=== PATIENT | female | born 1985 | race Caucasian/White ===

== ENCOUNTER 2016-12-19 10:20 | Emergency (ER) | payer MEDICAID ==
--- NOTE | 2016-12-19 10:33 | ER Document Report ---
ED Medical Screen (RME) - General Stated Complaint: EYE PAIN Notes: 31 yo female c/o pressure behind both eyes but worse behind left eye , blurred vision, loss of balance x 1 week. pt recently started OCP, and is concerned symptoms may be from control pills. no hx/o frequent headaches. no n/v, no fever, no neck pain. no chest pain or shortness of breath. pt is neurologically intact. NAD. VSS pt is 4 mos TRAVEL OUTSIDE OF THE [place] IN LAST 30 DAYS: No - Related Data Allergies/Adverse Reactions: No Known Allergies Allergy (Unverified 08/09/16 14:57) Past Medical History - Past Medical History Cardiac Medical History: Denies: Hx Hypertension, Hx Pulmonary Embolism, Hx Heart Murmur Pulmonary Medical History: Denies: Hx Asthma, Hx Sleep Apnea, Hx Tuberculosis Neurological Medical History: Denies: Hx Cerebrovascular Accident, Hx Seizures Endocrine Medical History: Denies: Hx Hyperthyroidism, Hx Hypothyroidism Renal/ Medical History: Denies: Hx Kidney Stones, Hx Ovarian Cysts, Hx Pelvic Inflammatory Disease Malignancy Medical History: Denies: Hx Breast Cancer, Hx Cervical Cancer, Hx Ovarian Cancer GI Medical History: Reports: Hx Gastroesophageal Reflux Disease - with . Denies: Hx Hiatal Hernia, Hx Ulcer Musculoskeltal Medical History: Denies Hx Fibromyalgia Psychiatric Medical History: Denies: Hx Bipolar Disorder, Hx Depression, Hx Post Traumatic Stress Disorder , Hx Schizophrenia Traumatic Medical History: Denies: Hx Fractures Infectious Medical History: Denies: Hx HIV Physical Exam - Vital signs Vitals: Temp Pulse Resp BP Pulse Ox 97.9 F 75 16 115/72 100 12/19/16 10:12/19/16 10:12/19/16 10:12/19/16 10:12/19/16 10:28 Course - Vital Signs Vital signs: Temp Pulse Resp BP Pulse Ox 97.9 F 75 16 115/72 100 12/19/16 10:28 12/19/16 10:28 12/19/16 10:28 12/19/16 10:28 12/19/16 10:28
[2016-12-19 10:53] LABS: ABSOLUTE EOSINOPHILS # (AUTO) 0.3 10^3/uL (0.0-0.6); ABSOLUTE LYMPHOCYTES (AUTO) 1.9 10^3/uL (0.5-4.7); ABSOLUTE MONOCYTES (AUTO) 0.5 10^3/uL (0.1-1.4); ABSOLUTE NEUT (AUTO) 4.6 10^3/uL (1.7-8.2); BASOPHILS % (AUTO) 0.5 % (0-2); EOSINOPHILS % (AUTO) 3.8 % (0-6); HEMATOCRIT 39.3 % (36.0-47.0); HEMOGLOBIN 13.2 g/dL (12.0-15.5); HGB HCT DIFFERENCE 0.3; LYMPHOCYTES % (AUTO) 25.6 % (13-45); MEAN CORPUSCULAR HEMOGLOBIN 29.4 pg (27.0-33.4); MEAN CORPUSCULAR HGB CONC 33.7 g/dL (32.0-36.0); MEAN CORPUSCULAR VOLUME 87 fl (80-97); MONOCYTES % (AUTO) 6.3 % (3-13); RED BLOOD COUNT 4.51 10^6/uL (3.72-5.28); RED CELL DISTRIBUTION WIDTH 14.2 % (11.5-14.0); SEGMENTED NEUTROPHILS % (AUTO) 63.8 % (42-78); WHITE BLOOD COUNT 7.3 10^3/uL (4.0-10.5)
[2016-12-19 11:01] LABS: APPEARANCE,URINE SLIGHTLY-CLOUDY; BILIRUBIN,URINE NEGATIVE (NEGATIVE); GLUCOSE, URINE NEGATIVE (NEGATIVE); KETONES,URINE NEGATIVE (NEGATIVE); LEUKOCYTE ESTERASE,URINE SMALL (NEGATIVE); NITRITE,URINE NEGATIVE (NEGATIVE); PROTEIN,URINE NEGATIVE (NEGATIVE); URINE SPECIFIC GRAVITY 1.025; UROBILINOGEN,URINE NEGATIVE mg/dL (<2.0)
[2016-12-19 11:15] LABS: ALANINE AMINOTRANSFERASE 34 U/L (9-52); ALBUMIN 4.1 g/dL (3.5-5.0); ALKALINE PHOSPHATASE 67 U/L (38-126); ANION GAP 7 (5-19); ASPARTATE AMINO TRANSFERASE 20 U/L (14-36); BILIRUBIN,TOTAL 0.5 mg/dL (0.2-1.3); BLOOD UREA NITROGEN 12 mg/dL (7-20); CALCIUM 9.3 mg/dL (8.4-10.2); CARBON DIOXIDE 28 mmol/L (22-30); CHLORIDE 105 mmol/L (98-107); CREATININE RESULT 0.75 mg/dL (0.52-1.25); GLUCOSE 87 mg/dL (75-110); POTASSIUM 4.5 mmol/L (3.6-5.0); SODIUM 140.3 mmol/L (137-145); TOTAL PROTEIN 6.5 g/dL (6.3-8.2)
--- NOTE | 2016-12-19 12:49 | ER Document Report ---
ED Headache - General Chief Complaint: Headache Stated Complaint: EYE PAIN Notes: Patient is experiencing a "dull pressure" behind both of her eyes, the left is worse than the right that began this morning as she awakened. She also noted blurry white vision bilaterally this morning that lasted for about 10 minutes but as resolved. Patient has not had symptoms like this before. She does recall that she had 2 episodes in the past week in which she seemingly lost her balance and had to hold onto adjacent structures to keep from falling. Both of these episodes lasted about 1 minute and one occurred a week ago and the other one occurred a couple of days ago. She did not experience dizziness or lightheadedness. The patient says she also experienced some ringing in her right ear this morning. Denies any nausea or vomiting. Denies any fever. Has had a slight cough with congestion. Did not pass out or lose consciousness. Patient has an IUD for control and has had it for 2 months. She is approximately 4 months , August 13. Has had 3 C-sections. Has 3 very young children at home. Patient says that she has not been able to sleep well at all for a couple of months. She sometimes goes a couple of days with inability to sleep at all. Patient is concerned that the control IUD may be causing her current symptoms. TRAVEL OUTSIDE OF THE [place] IN LAST 30 DAYS: No - Related Data Allergies/Adverse Reactions: No Known Allergies Allergy (Unverified 08/09/16 14:57) Past Medical History - Social History Smoking Status: Current Every Day Smoker Cigarette use (# per day): Yes Chew tobacco use (# tins/day): No Frequency of alcohol use: Rare Family History: Reviewed & Not Pertinent Patient has suicidal ideation: No Patient has homicidal ideation: No - Past Medical History Cardiac Medical History: Denies: Hx Hypertension, Hx Pulmonary Embolism, Hx Heart Murmur Neurological Medical History: Denies: Hx Cerebrovascular Accident, Hx Migraine, Hx Seizures GI Medical History: Reports: Hx Gastroesophageal Reflux Disease - with Past Surgical History: Reports: Hx Section - 3, Hx Cholecystectomy Review of Systems - Review of Systems Notes: REVIEW OF SYSTEMS: CONSTITUTIONAL : Denies fever. EENT: Denies nose or mouth or throat pain or other symptoms. See history of present illness regarding ringing in the ear, problems with vision. CARDIOVASCULAR: Denies chest pain. RESPIRATORY: Has had some cough and chest congestion, but not shortness of breath. GASTROINTESTINAL: Denies abdominal pain or nausea, vomiting, or diarrhea. GENITOURINARY: Denies difficulty or painful urinating, urinary frequency, blood in urine. MUSCULOSKELETAL: Denies back or neck pain. Denies joint pain or swelling. SKIN: Denies rash or skin lesions. NEUROLOGICAL: Denies LOC or altered mental status. Denies headache, but describes "dull pressure"--see history of present illness. Denies sensory loss or motor deficits. PSYCHIATRIC: Denies anxiety or stress. Denies depression. ALL OTHER SYSTEMS REVIEWED AND NEGATIVE. Physical Exam - Vital signs Vitals: Temp Pulse Resp BP Pulse Ox 97.9 F 75 16 115/72 100 12/19/16 10:28 12/19/16 10:28 12/19/16 10:12/19/16 10:12/19/16 10:28 Interpretation: Normal - Notes Notes: PHYSICAL EXAMINATION: GENERAL: Well-appearing, in no acute distress. Weighs 114 kg. HEAD: Atraumatic, normocephalic. EYES: Pupils equal round and reactive to light, extraocular movements intact. ENT: oropharynx clear without exudates. Moist mucous membranes. NECK: Normal range of motion, supple. LUNGS: Breath sounds clear and equal bilaterally. HEART: Regular rate and rhythm without murmurs. ABDOMEN: Soft, nontender. No guarding or rebound. BACK: No tenderness throughout entire back. EXTREMITIES: Normal range of motion without pain. NEUROLOGICAL: Normal speech, normal gait. Normal sensory, motor, and reflex exams. Awake, alert, and oriented x3. Cranial nerves normal. PSYCH: Normal mood, normal affect. SKIN: Warm, dry, no rashes. Course - Vital Signs Vital signs: Temp Pulse Resp BP Pulse Ox 97.9 F 75 16 115/72 100 12/19/16 10:28 12/19/16 10:28 12/19/16 10:28 12/19/16 10:28 12/19/16 10:28 - Laboratory Result Diagrams: 12/19/16 10:38 12/19/16 10:38 Laboratory results interpreted by me: 12/19/16 12/19/16 10:38 10:38 RDW 14.2 H Urine Blood MODERATE H Ur Leukocyte Esterase SMALL H Discharge - Discharge Clinical Impression: Eye pressure Headache Qualifiers: Headache type: unspecified Headache chronicity pattern: chronic headache Intractability: not intractable Qualified Code(s): R51 - Headache Condition: Stable Disposition: HOME, SELF-CARE Additional Instructions: HEADACHE and EYE PRESSURE: The physician does not feel that the headache you are experiencing has a serious underlying cause. Most headaches are due to emotional stress, with resultant muscle tension (tension headache). Occasionally, headaches are secondary to changes in the blood vessels of the scalp (vascular headache and migraine headache). Sometimes, a headache is the first symptom of another developing illness, such as a viral infection. You have no evidence of stroke, bleeding, meningitis, or other serious cause of your headache. The treatment of headaches varies with the severity and cause of the pain. Not all headaches need pain shots. In fact, there is evidence that using narcotics for headaches may make them worse in the long run. The physician will determine the therapy that's in your best interest. If you develop a fever, if the headache is different from any you've previously experienced, or if the headache progressively worsens, then call your physician at once or go to the emergency room. NORMAL EXAM AND WORKUP: At this time, your examination and workup show no significant abnormality. No significant abnormal physical findings were noted. All laboratory, EKG, and imaging (x-ray, CT scans, ultrasound) studies that were ordered show no significant abnormality. Although your examination and all studies that were ordered showed no significant abnormal finding, there are no examinations and no studies that are 100% accurate. There is always the possibility that some abnormality could exist and not be detected with physical examination or within the limits and capabilities of laboratory and other studies. You should return or follow up as you were instructed on your visit today for further evaluation if your symptoms do not resolve. Anxiety The physician feels that some of your health problems are being caused by anxiety. Anxiety affects your health in many ways. Anxiety alone can cause palpitations, sweats, chest pains, abdominal pains, shortness of breath, and headaches. It contributes to ulcer disease, high blood pressure, irritable bowel syndrome, and has been shown to cause flare-ups of many other diseases. Anxiety is not a simple disorder to treat. If the anxiety is due to recent life stresses, you may simply need time to "work through" the changes. If the anxiety is due to an underlying unhappiness with yourself or due to psychiatric disturbance, professional help will be needed. Your physician can refer you for further help if needed. Anti-anxiety medication is occasionally given if the stress is acute or if you are having trouble sleeping. Chronic or frequent use of these medications is not a good idea because the body becomes reliant on it, preventing you from dealing with life's normal stresses. Benzodiazepines You have been given a benzodiazepine medication. Examples of this type of medicine include Valium, Xanax, Librium, Ativan, and Halcion. Benzodiazepines have many uses. Medications of this type are used for insomnia, anxiety, muscle spasms, seizures, and drug and alcohol withdrawal. You may become very drowsy when you first take the medication. You should not drive or operate machinery while under its effects. Do not combine the medication with alcohol, or with any other medication without talking to your doctor. Do not take if without specific instruction from your welding machine operator/tender. Some benzodiazepines may have harmful interactions with oral antifungal medicines such as ketoconazole, itraconazole, and nefazodone. If you are taking an antifungal medicine, discuss this with your doctor before taking benzodiazepines. If you run out of the prescribed Ativan medication sometimes diphenhydramine ( Benadryl) can be helpful for your symptoms. USE OF DIPHENHYDRAMINE: Diphenhydramine (Benadryl) is an antihistamine and has been recommended to help treat your headache and to prevent side effects of other medications used to treat headaches. The medication can be repeated four times daily. Age Elixir (12.5 mg/tsp) 25 mg pill adult 1-2 tabs Antihistamines may cause drowsiness, especially with the first dose. Do not operate machinery or drive while under the effects of the medication. Do not combine the medication with alcohol, or with any other medication without talking to your doctor. FOLLOW-UP CARE: If you have been referred to a physician for follow-up care, call the physician s office for an appointment as you were instructed or within the next two days. If you experience worsening or a significant change in your symptoms, notify the physician immediately or return to the Emergency Department at any time for re-evaluation. I am providing you with contact information for a local mental health facility that you could try to schedule an appointment for evaluation if your symptoms do not improve. Prescriptions: Lorazepam [Ativan 1 mg Tablet] 1 - 2 mg PO Q4HP PRN #12 tab PRN Reason: Referrals: [facility] [Provider Group] - Follow up as needed
[2016-12-19 14:34] VITALS: BP 103/50
== END 2016-12-19 14:34 | disposition home or self-care (01) ==
LOC: ER 10:20
DX: R51 Headache (principal); H57.8 Other specified disorders of eye and adnexa; H53.8 Other visual disturbances; H93.11 Tinnitus, right ear; R05 Cough; R09.89 Other specified symptoms and signs involving the circulatory and respiratory systems; F17.210 Nicotine dependence, cigarettes, uncomplicated; Z97.5 Presence of (intrauterine) contraceptive device
CPT/HCPCS: 36415; 70450; 80053; 81001; 85025; 99284

== ENCOUNTER 2017-04-13 13:52 | Emergency (ER) | payer MEDICAID ==
--- NOTE | 2017-04-13 15:35 | ER Document Report ---
HPI - HPI Pain Level: 2 Context: Patient is a 31-year-old female who presents the office complaining of an infection, possible abscess, to her tailbone 1 week. Pt denies any discharge or red streaks to the area. Patient states that about 8 years ago she had a similar incident where she needed medication and was able to express purulent discharge. Patient has been having trouble applying pressure to that area. She has not had any other [id number] medications for her symptoms. The pain does not radiate. Denies any fever, URI symptoms, sore throat, chest pain , palpitations, shortness of breath, cough, wheeze, abdominal pain, nausea, vomiting, dysuria, or other rash. - ROS Notes: REVIEW OF SYSTEMS: CONSTITUTIONAL : Denies fever, chills, or sweats. Denies recent illness. CARDIOVASCULAR: Denies chest pain. Denies palpitations or racing or irregular heart beat. Denies ankle edema. RESPIRATORY: Denies cough, cold, or chest congestion. Denies shortness of breath, difficulty breathing, or wheezing. GASTROINTESTINAL: Denies abdominal pain or distention. Denies nausea, vomiting , or diarrhea. Denies blood in vomitus, stools, or per rectum. Denies black, tarry stools. Denies constipation. GENITOURINARY: Denies difficulty urinating, painful urination, burning, frequency, blood in urine, or discharge. FEMALE GENITOURINARY: Denies vaginal bleeding, heavy or abnormal periods, irregular periods. Denies vaginal discharge or odor. MUSCULOSKELETAL: Denies back or neck pain or stiffness. Denies joint pain or swelling. SKIN: see hpi. ALL OTHER SYSTEMS REVIEWED AND NEGATIVE. Dictation was performed using [employer] voice recognition software - DERM Skin Color: Normal Past Medical History - Social History Smoking Status: Current Every Day Smoker Family History: Reviewed & Not Pertinent Patient has suicidal ideation: No Patient has homicidal ideation: No - Past Medical History Cardiac Medical History: Denies: Hx Hypertension, Hx Pulmonary Embolism, Hx Heart Murmur Pulmonary Medical History: Denies: Hx Asthma, Hx Sleep Apnea, Hx Tuberculosis Neurological Medical History: Denies: Hx Cerebrovascular Accident, Hx Migraine, Hx Seizures Endocrine Medical History: Denies: Hx Hyperthyroidism, Hx Hypothyroidism Renal/ Medical History: Denies: Hx Kidney Stones, Hx Ovarian Cysts, Hx Peritoneal Dialysis, Hx Pelvic Inflammatory Disease Malignancy Medical History: Denies: Hx Breast Cancer, Hx Cervical Cancer, Hx Ovarian Cancer GI Medical History: Reports: Hx Gastroesophageal Reflux Disease - with . Denies: Hx Hiatal Hernia, Hx Ulcer Musculoskeltal Medical History: Denies Hx Fibromyalgia Psychiatric Medical History: Denies: Hx Bipolar Disorder, Hx Depression, Hx Post Traumatic Stress Disorder , Hx Schizophrenia Traumatic Medical History: Denies: Hx Fractures Infectious Medical History: Denies: Hx HIV Past Surgical History: Reports: Hx Section - 3, Hx Cholecystectomy Vertical Provider Document - CONSTITUTIONAL Notes: PHYSICAL EXAMINATION: GENERAL: Well-appearing, well-nourished and in no acute distress. HEAD: Atraumatic, normocephalic. NECK: Normal range of motion, supple without lymphadenopathy LUNGS: Breath sounds clear to auscultation bilaterally and equal. No wheezes rales or rhonchi. HEART: Regular rate and rhythm without murmurs, rubs, gallops. Extremities: No cyanosis, clubbing, or edema b/l. NEUROLOGICAL: Cranial nerves grossly intact. Normal speech, normal gait. Normal sensory, motor exams PSYCH: Normal mood, normal affect. SKIN: + erythema (0.25cm) area to the superficial coccyx with possible 2 small sinus tracts. Probable pilonidal cyst palpated to the coccyx. + tenderness. No streaks, discharge, or abscess appreciated. - INFECTION CONTROL TRAVEL OUTSIDE OF THE [place] IN LAST 30 DAYS: No - RESPIRATORY O2 Sat by Pulse Oximetry: 99 Course - Re-evaluation Re-evalutation: Patient is a 31yo female who presents with mild cellulitis w/o abscess to her suspected pilonidal cyst. I will cover her with bactrim DS BID x10 days. Vitals stable. PE otherwise unremarkable. No I&D warranted at this time. Recommend she f/u with a general surgeon for elective excision once infection resolves. Consult with PCM in 2-3 days for recheck. If any worsening sx's or development of fever to return to the ED. Pt in agreement. Instructions as otherwise reviewed in d/c. 04/13/17 18:13 - Vital Signs Vital signs: Temp Pulse Resp BP Pulse Ox 98.2 F 87 16 133/82 H 99 04/13/17 14:01 04/13/17 14:01 04/13/17 14:01 04/13/17 14:01 04/13/17 14:01 Discharge - Discharge Clinical Impression: Pilonidal cyst without abscess Cellulitis Qualifiers: Site of cellulitis: other site Qualified Code(s): L03.818 - Cellulitis of other sites Condition: Stable Disposition: HOME, SELF-CARE Instructions: Trimethoprim-Sulfa ([facility]) Additional Instructions: Keep the area clean and dry May apply triple antibiotic ointment Tylenol ibuprofen as needed for discomfort Take medication as directed Follow-up with your primary care doctor in 2-3 days for recheck Consider consult with a general surgeon to further evaluate for possible pilonidal cyst and elective excision. Return to the ED with any development of fever worsening pain purulent discharge or red streaks. Prescriptions: Sulfamethoxazole/Trimethoprim [Bactrim Ds Tablet] 1 each PO BID #20 tablet Referrals: [facility] [Provider Group] - Follow up as needed
[2017-04-13 16:07] VITALS: BP 118/63
== END 2017-04-13 16:05 | disposition home or self-care (01) ==
LOC: ER 13:52
DX: L05.91 Pilonidal cyst without abscess (principal); L03.818 Cellulitis of other sites; F17.200 Nicotine dependence, unspecified, uncomplicated
CPT/HCPCS: 99282

== ENCOUNTER 2017-08-09 09:09 | Emergency (ER) | payer MEDICAID ==
[2017-08-09] MEDS ORDERED: CEFTRIAXONE INJ 1000 MG VIAL IM ONE (09:53)
[2017-08-09] MEDS ORDERED: LIDOCAINE 1% INJ-PF (10 MG/ML) 30 ML SDV INJ ONE (09:53)
[2017-08-09] MEDS ORDERED: DEXAMETHASONE SOD PHOS INJ 10 MG/1 ML VIAL IM ONE (09:53)
--- NOTE | 2017-08-09 10:31 | ER Document Report ---
ED Head/Face/Scalp Injury - General Chief Complaint: Facial Swelling Stated Complaint: RT FACE SWELLING Time Seen by Provider: 08/09/17 09:36 Mode of Arrival: Ambulatory Information source: Patient Notes: Patient is a 32-year-old who presents to the ER today for swelling and pain to the right side of her mouth. Patient states that she cracked a tooth recently and was in pain, but was taking ibuprofen 800 that was handling it and over the past 3 days has gotten swelling to the right side of that area. She denies any drainage, fever, chills, history of abscesses or MRSA. TRAVEL OUTSIDE OF THE [place] IN LAST 30 DAYS: No - Related Data Allergies/Adverse Reactions: No Known Allergies Allergy (Verified 08/09/17 09:29) Past Medical History - General Information source: Patient - Social History Smoking Status: Unknown if Ever Smoked Chew tobacco use (# tins/day): No Frequency of alcohol use: None Drug Abuse: None Family History: Reviewed & Not Pertinent Patient has suicidal ideation: No Patient has homicidal ideation: No - Past Medical History Cardiac Medical History: Denies: Hx Hypertension, Hx Pulmonary Embolism, Hx Heart Murmur Pulmonary Medical History: Denies: Hx Asthma, Hx Sleep Apnea, Hx Tuberculosis Neurological Medical History: Denies: Hx Cerebrovascular Accident, Hx Migraine, Hx Seizures Endocrine Medical History: Denies: Hx Hyperthyroidism, Hx Hypothyroidism Renal/ Medical History: Denies: Hx Kidney Stones, Hx Ovarian Cysts, Hx Peritoneal Dialysis, Hx Pelvic Inflammatory Disease Malignancy Medical History: Denies: Hx Breast Cancer, Hx Cervical Cancer, Hx Ovarian Cancer GI Medical History: Reports: Hx Gastroesophageal Reflux Disease - with . Denies: Hx Hiatal Hernia, Hx Ulcer Musculoskeltal Medical History: Denies Hx Fibromyalgia Psychiatric Medical History: Denies: Hx Bipolar Disorder, Hx Depression, Hx Post Traumatic Stress Disorder , Hx Schizophrenia Traumatic Medical History: Denies: Hx Fractures Infectious Medical History: Denies: Hx HIV Past Surgical History: Reports: Hx Section - 3, Hx Cholecystectomy Review of Systems - Review of Systems Constitutional: No symptoms reported EENT: See HPI Cardiovascular: No symptoms reported Respiratory: No symptoms reported Gastrointestinal: No symptoms reported Genitourinary: No symptoms reported Female Genitourinary: No symptoms reported Musculoskeletal: No symptoms reported Skin: No symptoms reported Hematologic/Lymphatic: No symptoms reported Neurological/Psychological: No symptoms reported Physical Exam - Vital signs Vitals: Temp Pulse Resp BP Pulse Ox 98.8 F 74 18 113/74 100 08/09/17 09:27 08/09/17 09:27 08/09/17 09:08/09/17 09:08/09/17 09:27 - Notes Notes: PHYSICAL EXAMINATION: GENERAL: mildly ill appearing, but in no acute distress. HEAD: Atraumatic, normocephalic. EYES: Pupils equal round and reactive to light, extraocular movements intact, sclera anicteric, conjunctiva are normal. ENT: ear canals without erythema or foreign body, TMs pearly christopher with good bony landmarks, nares patent, oropharynx clear without exudates. Moist mucous membranes. edema noted to right lower buccal space, no fluctuance or induration noted, no drainage NECK: Normal range of motion, supple without lymphadenopathy LUNGS: CTAB and equal. No wheezes rales or rhonchi. HEART: Regular rate and rhythm without murmurs EXTREMITIES: Normal range of motion, no pitting edema. No cyanosis. NEUROLOGICAL: Cranial nerves grossly intact. Normal sensory/motor exams. PSYCH: Normal mood, normal affect. SKIN: Warm, Dry, normal turgor, no rashes or lesions noted Course - Re-evaluation Re-evalutation: 08/09/17 10:36 Patient was given Rocephin and Decadron injections here. I will refer her to ear nose and throat as I see nothing to drain here today. - Vital Signs Vital signs: Temp Pulse Resp BP Pulse Ox 98.8 F 74 18 113/74 100 08/09/17 09:27 08/09/17 09:08/09/17 09:08/09/17 09:08/09/17 09:27 Discharge - Discharge Clinical Impression: Dental infection Condition: Stable Disposition: HOME, SELF-CARE Additional Instructions: Return immediately for any new or worsening symptoms. Follow up with ear nose and throat, call tomorrow to make followup appointment. Prescriptions: Clindamycin HCl 300 mg PO TID #30 capsule Methylprednisolone [Medrol Dosepack (4 mg/Tab) 21 Tab/Dosepak] 4 mg PO ASDIR PRN #21 tab.ds.[id number] PRN Reason: Referrals: [facility] [Primary Care Provider] - Follow up as needed [facility] [Provider Group] - Follow up as needed
[2017-08-09 10:46] VITALS: BP 116/61
== END 2017-08-09 10:46 | disposition home or self-care (01) ==
LOC: ER 09:09
DX: K04.7 Periapical abscess without sinus (principal)
CPT/HCPCS: 99283; 96372; J3490; J0696; J1100

== ENCOUNTER 2017-09-10 08:27 | Emergency (ER) | payer MEDICAID ==
[2017-09-10 08:34] VITALS: BP 112/58
--- NOTE | 2017-09-10 09:38 | ER Document Report ---
HPI - HPI Patient complains to provider of: Dental pain with swelling to right lower jaw Onset: Yesterday - Couple days Quality of pain: No pain Severity: None Pain Level: Denies Associated Symptoms: Other - Minimal dental pain with swelling to the right lower jaw Exacerbated by: Denies Relieved by: Denies Similar symptoms previously: Yes Recently seen / treated by doctor: No - ROS ROS below otherwise negative: Yes - CONSTITUTIONAL Constitutional: DENIES: Fever, Chills - EENT EENT: DENIES: Sore Throat, Ear Pain, Nasal Drainage-Clear, Nasal Drainage- Purulent, Congestion, Eye problems - NEURO Notes: Dental pain tooth #30 with minimal swelling to the right lower jaw - CARDIOVASCULAR Cardiovascular: DENIES: Chest pain - RESPIRATORY Respiratory: DENIES: Trouble Breathing, Coughing - GASTROINTESTINAL Gastrointestinal: DENIES: Abdominal Pain, Nausea, Patient vomiting, Diarrhea, Constipation, Black / Bloody Stools - URINARY Urinary: DENIES: Dysuria, Urgency, Frequency - REPRODUCTIVE Reproductive: DENIES: :, Postmenopausal, Abnormal bleeding / discharge - MUSCULOSKELETAL Musculoskeletal: DENIES: Extremity pain, Back Pain, Neck Pain, Swelling - DERM Skin Color: Normal Skin Problems: None Past Medical History - General Information source: Patient - Social History Smoking Status: Former Smoker Cigarette use (# per day): No Chew tobacco use (# tins/day): No Smoking Education Provided: No Frequency of alcohol use: Rare Drug Abuse: None Lives with: Family Family History: Reviewed & Not Pertinent Patient has suicidal ideation: No Patient has homicidal ideation: No - Past Medical History Cardiac Medical History: Reports: None Pulmonary Medical History: Reports: None EENT Medical History: Reports: Other Neurological Medical History: Reports: None - [facility] Endocrine Medical History: Reports: None Renal/ Medical History: Reports: None Malignancy Medical History: Reports: None GI Medical History: Reports: Hx Gastroesophageal Reflux Disease - with Musculoskeltal Medical History: Reports None Skin Medical History: Reports None Psychiatric Medical History: Reports: None Traumatic Medical History: Reports: None Infectious Medical History: Reports: None Past Surgical History: Reports: Hx Section - 3, Hx Cholecystectomy Vertical Provider Document - CONSTITUTIONAL Agree With Documented VS: Yes Exam Limitations: No Limitations General Appearance: WD/WN, No Apparent Distress - INFECTION CONTROL TRAVEL OUTSIDE OF THE [place] IN LAST 30 DAYS: No - HEENT HEENT: Atraumatic, Normal ENT Exam, Normocephalic, PERRLA Mouth Diagram: 1 - Cracked broken tooth with minimal swelling around the area - NECK Neck: Normal Inspection - RESPIRATORY Respiratory: Breath Sounds Normal, No Respiratory Distress O2 Sat by Pulse Oximetry: 99 - CARDIOVASCULAR Cardiovascular: Regular Rate, Regular Rhythm - GI/ABDOMEN Gastrointestinal: Abdomen Soft, Abdomen Non-Tender, No Organomegaly, Normal Bowel Sounds - MUSCULOSKELETAL/EXTREMETIES Musculoskeletal/Extremeties: MAEW, FROM, Non-Tender - NEURO Level of Consciousness: Awake, Alert, Appropriate Motor/Sensory: No Motor Deficit, No Sensory Deficit - DERM Integumentary: Warm, Dry, No Rash Course - Vital Signs Vital signs: Temp Pulse Resp BP Pulse Ox 98.8 F 87 16 112/58 L 99 09/10/17 08:33 09/10/17 08:33 09/10/17 08:33 09/10/17 08:33 09/10/17 08:33 Discharge - Discharge Clinical Impression: Chronic dental infection Condition: Stable Disposition: HOME, SELF-CARE Instructions: Dentist Additional Instructions: TOOTHACHE: Your pain is due to dental decay. The tooth must be repaired in order for you to feel better. You will, therefore, be referred to a dentist. We do not have dentists on the staff at [facility]. Severe swelling or drainage around a tooth usually means a dental abscess. This also requires evaluation and treatment by the dentist, but antibiotics may be prescribed while awaiting dental treatment. You should be rechecked immediately if you develop major swelling of the face, increasing pain, a lump in the jaw or gums, headache, difficulty swallowing, or fever. CLINDAMYCIN: You have been given a prescription for the antibiotic clindamycin. It is often prescribed for infections in the mouth, such as dental infections or abscesses, and for skin infections due to MRSA. It's important that you take all the medication, unless instructed otherwise by your physician. Failure to complete the entire course can result in relapse of your condition. Common side effects of antibiotics include nausea, intestinal cramping, or diarrhea. Women may develop vaginal yeast infections, and babies can get yeast (thrush) in the mouth following the use of antibiotics. Contact your physician if you develop significant side effects from this medication. Allergy to this antibiotic can result in hives, wheezing, faintness, or itching. If symptoms of allergy occur, stop the medication and call the doctor. STEROID MEDICATION: You have been given a medicine of the cortisone/steroid class. This medication is used to control inflammation or allergy. It is usually only given for a short period of time, until the acute process subsides. There are usually no side effects from short-term use of cortisone-like medications. Some persons feel an increased sense of well-being and are not sleepy at bedtime. Long-term use of cortisone medications is best avoided, unless required for a severe condition. If your condition does not remit, or relapses after the course of corticosteroid medication, you should consult your physician. FOLLOW-UP CARE: You have been referred for follow-up care to the dentists listed below. Call the dentists office for an appointment as you were instructed or within the next two days. If you experience worsening or a significant change in your symptoms, notify the physician immediately or return to the Emergency Department at any time for re-evaluation. [facility] [address] [place], [place] Saturday mornings, by appointment [facility] [address] [place] [address] [facility] [address] [facility] [address] [facility] [address] [email or web address] [address] [place] [address] Saturday- 8:00am to 5:00 pm Will see [facility] other [facility]. Charges based on income and family size and accepts Medicare, Medicaid, and Insurances Will pull molars [facility] [place] [id number] Hours of Operation 8:00 am - 4:30 pm weekdays The following dental offices accept Medicaid: [facility] Dr. Matias Dr. Murillo Dr. Hansen Dr. Jimenez Germain Morales, Abbi, and Candice oral surgery Dr. Aguilar ([place]) Dr. Guevara ([place]) [facility] Drs. Porras and Andry ([place]) Dr. Weems ([place]) [facility] Dr. Walton ([place]) Drs. Anton and ([place]) Medicaid Care Line Prescriptions: Clindamycin HCl 300 mg PO TID #30 capsule Prednisone [Deltasone 10 mg Tablet] 10 mg PO ASDIR PRN #21 tablet PRN Reason: Referrals: [facility] [Provider Group] - Follow up as needed
== END 2017-09-10 09:51 | disposition home or self-care (01) ==
LOC: ER 08:27
DX: K04.7 Periapical abscess without sinus (principal); Z87.891 Personal history of nicotine dependence; Z90.49 Acquired absence of other specified parts of digestive tract
CPT/HCPCS: 99282

== ENCOUNTER 2018-02-22 00:33 | Emergency (ER) | payer MEDICAID ==
[2018-02-22] MEDS ORDERED: IBUPROFEN 800 MG TABLET PO ONE (02:33)
[2018-02-22] MEDS ORDERED: SULFAMETHOXAZOLE/TRIMETHOPRIM 800-160 MG TABLET PO ONE (02:33)
[2018-02-22] MEDS ORDERED: CEPHALEXIN 500 MG CAPSULE PO ONE (02:33)
--- NOTE | 2018-02-22 02:34 | ER Document Report ---
HPI - HPI Patient complains to provider of: Abscess Onset: Other - 2 days Onset/Duration: Persistent Quality of pain: Achy Pain Level: 4 Context: Patient presents complaining of possible insect bite and abscess to right forearm. Patient states area started to develop 2 days ago but has increased in tenderness, redness and pain. Patient denies any fever. Associated Symptoms: Other - Right arm infection. denies: Fever Relieved by: Denies Similar symptoms previously: No Recently seen / treated by doctor: No - ROS ROS below otherwise negative: Yes Systems Reviewed and Negative: Yes All other systems reviewed and negative - CONSTITUTIONAL Constitutional: DENIES: Fever, Chills - REPRODUCTIVE Reproductive: DENIES: : - MUSCULOSKELETAL Musculoskeletal: REPORTS: Extremity pain, Swelling - DERM Skin Color: Erythema Past Medical History - General Information source: Patient - Social History Smoking Status: Current Every Day Smoker Chew tobacco use (# tins/day): No Smoking Education Provided: Yes Frequency of alcohol use: Occasional Drug Abuse: None Occupation: None Lives with: Family Family History: Reviewed & Not Pertinent Patient has suicidal ideation: No Patient has homicidal ideation: No - Medical History Medical History: Negative - Past Medical History Cardiac Medical History: Denies: Hx Hypertension Pulmonary Medical History: Denies: Hx Asthma, Hx Tuberculosis GI Medical History: Reports: Hx Gastroesophageal Reflux Disease - with . Denies: Hx Hiatal Hernia, Hx Ulcer Past Surgical History: Reports: Hx Section - 3, Hx Cholecystectomy Vertical Provider Document - CONSTITUTIONAL Agree With Documented VS: Yes Exam Limitations: No Limitations General Appearance: WD/WN, No Apparent Distress - INFECTION CONTROL TRAVEL OUTSIDE OF THE [place].S. IN LAST 30 DAYS: No - HEENT HEENT: Atraumatic, Normocephalic - NECK Neck: Normal Inspection - RESPIRATORY Respiratory: No Respiratory Distress - CARDIOVASCULAR Pulses: Normal: Radial - BACK Back: Normal Inspection - MUSCULOSKELETAL/EXTREMETIES Musculoskeletal/Extremeties: Tender - Right forearm tenderness, Edema - NEURO Level of Consciousness: Awake, Alert, Appropriate Motor/Sensory: No Motor Deficit - DERM Integumentary: Warm, Dry, Abscess - Developing abscess to right forearm with surrounding erythema Course - Vital Signs Vital signs: Temp Pulse Resp BP Pulse Ox 98.7 F 95 16 126/65 H 100 02/22/18 00:33 02/22/18 00:33 02/22/18 00:33 02/22/18 00:33 02/22/18 00:33 Procedures - Incision and Drainage Right Arm Type: Simple Anesthetic type: 1% Lidocaine Blade size: 11 I&D procedure: Betadine prep applied Incision Method: Incision made by scalpel Amount/type of drainage: small amount of purulent drainage Adult Front & Back picture: 1 - abscess Discharge - Discharge Clinical Impression: Abscess, Encounter for incision and drainage procedure Condition: Stable Disposition: HOME, SELF-CARE Instructions: Abscess ([facility]), Cephalexin ([facility]), Oral Narcotic Medication ([facility]), Post Incision and Drainage, Trimethoprim-Sulfa ([facility]) Additional Instructions: Return immediately for any new or worsening symptoms Followup with your primary care provider, call tomorrow to make a followup appointment Prescriptions: Cephalexin Monohydrate [Keflex 500 mg Capsule] 500 mg PO Q6H 5 Days capsule Sulfamethoxazole/Trimethoprim [Bactrim Ds Tablet] 1 each PO BID #20 tablet Forms: Smoking Cessation Education Referrals: MILADIS GARCIA MD [Primary Care Provider] - Follow up as needed
[2018-02-22] MEDS ORDERED: HYDROCODONE/ACETAMINOPHEN 5-325 MG (6 TAB/ER DISP) PO PRN (03:15)
[2018-02-22 03:29] VITALS: BP 117/59
== END 2018-02-22 03:29 | disposition home or self-care (01) ==
LOC: ER 00:33
PROC: 0H9DXZZ Drainage of Right Lower Arm Skin, External Approach (ICD-10-PCS; principal; 2018-02-22)
DX: L02.413 Cutaneous abscess of right upper limb (principal); F17.200 Nicotine dependence, unspecified, uncomplicated
CPT/HCPCS: 99283; 10060; J3490 ×2

== ENCOUNTER 2018-08-31 19:32 | Emergency (ER) | payer MEDICAID ==
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
[2018-08-31] MEDS ORDERED: DEXAMETHASONE SOD PHOS INJ 10 MG/1 ML VIAL IM ONE (21:07)
[2018-08-31 21:19] VITALS: BP 107/62
== END 2018-08-31 21:31 | disposition home or self-care (01) ==
LOC: ER 19:32
DX: M54.31 Sciatica, right side (principal); M54.5 Low back pain; M79.605 Pain in left leg; F17.210 Nicotine dependence, cigarettes, uncomplicated
CPT/HCPCS: 99283; 96372; J1100

== ENCOUNTER 2019-04-24 12:27 | Emergency (ER) | payer MEDICAID ==
[2019-04-24 12:37] VITALS: BP 111/63
--- NOTE | 2019-04-24 14:13 | ER Document Report ---
HPI - HPI Patient complains to provider of: Itchy rash Time Seen by Provider: 04/24/19 13:45 Onset: Other - 3 days Onset/Duration: Persistent Quality of pain: No pain Pain Level: 1 Context: Patient presents the emergency department with complaints of a itchy rash to her lower extremities now spreading to her back and arm. Denies fever vomiting diarrhea reports other members of the family not itching. No other family members with bug bites. Denies new medications new detergents. Reports she just woke up with the rash. She has utilized calamine and Benadryl without relief of symptoms. Associated Symptoms: None Exacerbated by: Denies Relieved by: Denies Similar symptoms previously: No Recently seen / treated by doctor: No - CONSTITUTIONAL Constitutional: DENIES: Fever, Chills - EENT EENT: DENIES: Sore Throat, Ear Pain, Eye problems - NEURO Neurology: DENIES: Headache, Weakness, Vision blurred, Dizzinesss / Vertigo - CARDIOVASCULAR Cardiovascular: DENIES: Chest pain - RESPIRATORY Respiratory: DENIES: Trouble Breathing, Coughing - GASTROINTESTINAL Gastrointestinal: DENIES: Abdominal Pain, Black / Bloody Stools - URINARY Urinary: DENIES: Dysuria, Urgency, Frequency - REPRODUCTIVE Reproductive: DENIES: : - MUSCULOSKELETAL Musculoskeletal: DENIES: Extremity pain Past Medical History - General Information source: Patient - Social History Smoking Status: Current Every Day Smoker Cigarette use (# per day): Yes Chew tobacco use (# tins/day): No Frequency of alcohol use: Occasional Drug Abuse: None Occupation: [employer] Lives with: Family Family History: Reviewed & Not Pertinent Patient has suicidal ideation: No Patient has homicidal ideation: No - Past Medical History Cardiac Medical History: Denies: Hx Hypertension Pulmonary Medical History: Denies: Hx Asthma, Hx Tuberculosis Neurological Medical History: Denies: Hx Migraine, Hx Seizures Renal/ Medical History: Denies: Hx Kidney Stones, Hx Peritoneal Dialysis GI Medical History: Reports: Hx Gastroesophageal Reflux Disease - with pregna ncy. Denies: Hx Hiatal Hernia, Hx Ulcer Psychiatric Medical History: Denies: Hx Bipolar Disorder, Hx Depression, Hx Schizophrenia Past Surgical History: Reports: Hx Section - 3, Hx Cholecystectomy Vertical Provider Document - CONSTITUTIONAL Agree With Documented VS: Yes Exam Limitations: No Limitations General Appearance: WD/WN, No Apparent Distress - INFECTION CONTROL TRAVEL OUTSIDE OF THE [place] IN LAST 30 DAYS: No - HEENT HEENT: Atraumatic, Normocephalic - NECK Neck: Supple - RESPIRATORY Respiratory: No Respiratory Distress - CARDIOVASCULAR Cardiovascular: Regular Rate - BACK Back: Normal Inspection - MUSCULOSKELETAL/EXTREMETIES Musculoskeletal/Extremeties: MICHAEL HPOENIX - NEURO Level of Consciousness: Awake, Alert, Appropriate Motor/Sensory: No Motor Deficit - DERM Integumentary: Warm, Dry Adult Front & Back Diagram: 1 - Multiple insect bites noted to patient's lower legs no vesicles no erythema no swelling no warmth 2 - Insect bite noted to patient's back. No vesicles no pustules no erythema no signs of infection. Course - Re-evaluation Re-evalutation: 04/24/19 16:37 She was instructed on Vistaril for itching and not to take Benadryl while taking Vistaril. Patient was also instructed to avoid hot showers avoid itching follow-up with dermatology if she continues. She was also encouraged to evaluate her environment. at her side reports she is been working outside more often now. She verbalized understanding to all Dictation of this chart was performed using voice recognition software; therefore, there may be some unintended grammatical errors. - Vital Signs Vital signs: Temp Pulse Resp BP Pulse Ox 97.7 F 64 16 111/63 100 04/24/19 12:35 04/24/19 12:35 04/24/19 12:35 04/24/19 12:35 04/24/19 12:35 Discharge - Discharge Clinical Impression: Insect bites Qualifiers: Encounter type: initial encounter Site of insect bite: unspecified site Qualified Code(s): W57.XXXA - Bitten or stung by nonvenomous insect and other nonvenomous arthropods, initial encounter Condition: Stable Disposition: HOME, SELF-CARE Instructions: Antihistamines ([facility]), Insect Bites ([facility]) Additional Instructions: *You have been treated for multiple insect bites, *Take medication as prescribed *Avoid itching avoid hot showers as discussed *Monitor your skin for signs of infection such as pain, redness, swelling, warmth *Follow up with a primary care provider within one week for recheck and referral for dermatology as indicated *Return to ED for signs of infection, worsening condition, changes, needs Prescriptions: Hydroxyzine Pamoate [Vistaril 25 mg Capsule] 25 mg PO TID #15 capsule
== END 2019-04-24 14:16 | disposition home or self-care (01) ==
LOC: ER 12:27
DX: S80.862A Insect bite (nonvenomous), left lower leg, initial encounter (principal); S80.861A Insect bite (nonvenomous), right lower leg, initial encounter; S30.860A Insect bite (nonvenomous) of lower back and pelvis, initial encounter; W57.XXXA Bitten or stung by nonvenomous insect and other nonvenomous arthropods, initial encounter; F17.210 Nicotine dependence, cigarettes, uncomplicated
CPT/HCPCS: 99283

== ENCOUNTER 2020-06-10 21:10 | Emergency (ER) | payer MEDICAID ==
[2020-06-10 21:38] VITALS: BP 110/64
[2020-06-10] MEDS ORDERED: LIDOCAINE 5% (700 MG) TRANSDERMAL ADH..PATCH TP ONE (22:20)
[2020-06-10] MEDS ORDERED: HYDROCODONE/ACETAMINOPHEN 5-325 MG (6 TAB/ER DISP) PO PRN (22:20)
[2020-06-10] MEDS ORDERED: CYCLOBENZAPRINE HCL 10 MG TABLET PO ONE (22:20)
[2020-06-10] MEDS ORDERED: IBUPROFEN 800 MG TABLET PO ONE (22:20)
--- NOTE | 2020-06-10 22:24 | ER Document Report ---
HPI - HPI Patient complains to provider of: Neck pain Time Seen by Provider: 06/10/20 22:14 Onset: This morning Onset/Duration: Worse Quality of pain: Sharp Pain Level: 5 Context: Patient states she woke up with neck tenderness and muscle spasm. Patient states pain is worsened throughout the day. Patient denies any trauma. Patient denies any fever. Patient denies any history of IV drug abuse. Associated Symptoms: denies: Fever, Headache Exacerbated by: Movement Relieved by: Denies Similar symptoms previously: No Recently seen / treated by doctor: No - ROS ROS below otherwise negative: Yes Systems Reviewed and Negative: Yes All other systems reviewed and negative - CONSTITUTIONAL Constitutional: DENIES: Fever, Chills - NEURO Neurology: DENIES: Weakness - REPRODUCTIVE Reproductive: DENIES: : - MUSCULOSKELETAL Musculoskeletal: REPORTS: Back Pain - DERM Skin Color: Normal Skin Problems: None Past Medical History - General Information source: Patient - Social History Smoking Status: Current Every Day Smoker Frequency of alcohol use: None Drug Abuse: None Occupation: None Lives with: Family Family History: Reviewed & Not Pertinent - Past Medical History Cardiac Medical History: Denies: Hx Hypertension Pulmonary Medical History: Denies: Hx Asthma, Hx Tuberculosis Neurological Medical History: Denies: Hx Migraine, Hx Seizures Renal/ Medical History: Denies: Hx Kidney Stones, Hx Peritoneal Dialysis GI Medical History: Reports: Hx Gastroesophageal Reflux Disease - with . Denies: Hx Hiatal Hernia, Hx Ulcer Past Surgical History: Reports: Hx Section - 3, Hx Cholecystectomy Vertical Provider Document - CONSTITUTIONAL Agree With Documented VS: Yes Exam Limitations: No Limitations General Appearance: WD/WN, No Apparent Distress - INFECTION CONTROL TRAVEL OUTSIDE OF THE [place] IN LAST 30 DAYS: No - HEENT HEENT: Atraumatic, Normocephalic - NECK Neck: Supple, Other - Left trapezius muscle tenderness with spasm. negative: Lymphadenopathy-Left, Lymphadenopathy-Right - RESPIRATORY Respiratory: Breath Sounds Normal, No Respiratory Distress - CARDIOVASCULAR Cardiovascular: Regular Rate, Regular Rhythm Pulses: Normal: Radial - MUSCULOSKELETAL/EXTREMETIES Musculoskeletal/Extremeties: MAEW, FROM - NEURO Level of Consciousness: Awake, Alert, Appropriate Motor/Sensory: No Motor Deficit - DERM Integumentary: Warm, Dry, No Rash Course - Re-evaluation Re-evalutation: 06/10/20 22:21 Patient with left trapezius muscle tenderness with spasm. No midline tenderness, no recent trauma. - Vital Signs Vital signs: Temp Pulse Resp BP Pulse Ox 98.3 F 80 16 110/64 100 06/10/20 21:30 06/10/20 21:30 06/10/20 21:30 06/10/20 21:30 06/10/20 21:30 Discharge - Discharge Clinical Impression: Trapezius muscle spasm Condition: Stable Disposition: HOME, SELF-CARE Instructions: Muscle Relaxers ([facility]), Muscle Strain ([facility]), Warm Packs ([facility]) Additional Instructions: Return immediately for any new or worsening symptoms Followup with your primary care provider, call tomorrow to make a followup appointment Prescriptions: Cyclobenzaprine HCl [Flexeril 10 Mg Tablet] 10 mg PO TID #15 tablet Lidocaine [Lidoderm 5% (700 mg) Transdermal Patch] 1 patch TP DAILY PRN #10 adh..patch PRN Reason: Naproxen [Naprosyn 250 Nmg Tablet] 1 tab PO BID #14 tablet Referrals: [facility] [Provider Group] - Follow up as needed
== END 2020-06-10 22:34 | disposition home or self-care (01) ==
LOC: ER 21:10
DX: M62.838 Other muscle spasm (principal); M54.2 Cervicalgia; F17.200 Nicotine dependence, unspecified, uncomplicated
CPT/HCPCS: 99283; J3490 ×3

== ENCOUNTER 2020-10-25 21:11 | Emergency (ER) | payer MEDICAID ==
[2020-10-25] MEDS ORDERED: CYCLOBENZAPRINE HCL 10 MG TABLET PO ONE (22:21)
[2020-10-25] MEDS ORDERED: KETOROLAC TROMETHAMINE 60 MG/2 ML SDV IM ONE (22:21)
--- NOTE | 2020-10-25 22:26 | ER Document Report ---
HPI - HPI Time Seen by Provider: 10/25/20 22:19 Notes: CHIEF COMPLAINT: Low back pain HPI: 35-year-old female with history of prior episodes of low back pain presenting with low back pain that began earlier today. Took no medications at home for this. Patient follows with [facility] for her back issues. States that occasionally her back spasms like it is doing tonight. States the pain is in the low back but more on the right side. No incontinence of urine or bowel no perineal numbness. Patient states she normally gets a muscle relaxer and some pain medicine until it goes away she has not seen orthopedics for this issue. Patient states she did recently move and may have overexerted herself ROS: See HPI - all other systems were reviewed and are otherwise negative Constitutional: no fever GI: no vomiting, no diarrhea, no abdominal pain : no dysuria Integumentary: no rash Allergy: no hives Musculoskeletal: no extremity pain or swelling, positive back pain Neurological: no numbness/tingling MEDICATIONS: I agree with the patient medications as charted by the RN. ALLERGIES: I agree with the allergies as charted by the RN. PAST MEDICAL HISTORY/PAST SURGICAL HISTORY: Reviewed and agree as charted by RN. SOCIAL HISTORY: Reviewed and agree as charted by RN. FAMILY HISTORY: No significant familial comorbid conditions directly related to patient complaint EXAM: Reviewed vital signs as charted by RN. CONSTITUTIONAL: Alert and oriented and responds appropriately to questions. Well-appearing; well-nourished HEAD: Normocephalic; atraumatic EYES: Conjunctivae clear, sclerae non-icteric ENT: normal nose; no rhinorrhea; moist mucous membranes NECK: Supple without meningismus; non-tender; no cervical lymphadenopathy, no masses CARD: symmetric distal pulses RESP: Normal chest excursion without splinting or tachypnea ABD/GI: Normal bowel sounds; non-distended; soft, non-tender, no rebound, no guarding; no palpable organomegaly or masses. BACK: The back appears normal and is mildly tender to palpation across the lower lumbar back more prominent in the right paraspinous musculature, there is no CVA tenderness EXT: Normal ROM in all joints; non-tender to palpation; no cyanosis, no effusions, no edema SKIN: Normal color for age and race; warm; dry; good turgor; no acute lesions noted NEURO: Moves all extremities equally; Motor and sensory function intact. Strength equal 5/5 bilateral lower extremities. Sensation intact and equal bilateral lower extremities. Straight leg raise is negative. No saddle anesthesia on exam. DTRs 2+ intact and equal bilateral lower extremities. PSYCH: The patient's mood and manner are appropriate. Grooming and personal hy giene are appropriate. MDM: 35-year-old female with prior episodes of low back pain now with low back pain more prominent on the right that appears to be muscular in nature. She is neurologically intact low suspicion for cauda equina. Will give Toradol and a muscle relaxer here in the emergency department discharged on Voltaren and Flexeril for follow-up with PCP or orthopedics - REPRODUCTIVE Reproductive: DENIES: : Past Medical History - Social History Smoking Status: Unknown if Ever Smoked Family History: Reviewed & Not Pertinent - Past Medical History Cardiac Medical History: Denies: Hx Hypertension Pulmonary Medical History: Denies: Hx Asthma, Hx Tuberculosis Neurological Medical History: Denies: Hx Migraine, Hx Seizures Renal/ Medical History: Denies: Hx Kidney Stones, Hx Peritoneal Dialysis GI Medical History: Reports: Hx Gastroesophageal Reflux Disease - with . Denies: Hx Hiatal Hernia, Hx Ulcer Psychiatric Medical History: Denies: Hx Bipolar Disorder, Hx Depression, Hx Schizophrenia Past Surgical History: Reports: Hx Section - 3, Hx Cholecystectomy Vertical Provider Document - INFECTION CONTROL TRAVEL OUTSIDE OF THE [place] IN LAST 30 DAYS: No Course - Vital Signs Vital signs: Temp Pulse Resp BP Pulse Ox 98.1 F 79 20 104/54 L 99 10/25/20 21:17 10/25/20 21:17 10/25/20 21:17 10/25/20 21:17 10/25/20 21:17 - Laboratory Results Critical Laboratory Results Reviewed: No Critical Results - Radiology Results Critical Radiology Results Reviewed: No Critical Results Discharge - Discharge Clinical Impression: Low back pain Qualifiers: Chronicity: acute Back pain laterality: right Sciatica presence: without sciatica Qualified Code(s): M54.5 - Low back pain Condition: Stable Disposition: HOME, SELF-CARE Instructions: Low Back Pain ([facility]) Additional Instructions: 1. Warm heat to the lower back twice daily 2. no heavy lifting for 2-3 days 3. medications as prescribed, no driving on muscle relaxers 4. follow up with orthopedics for further evaluation and treatment as needed for any continuing pain or problems, call for appt. 5. return to the ER for any onset of incontinence of urine, fever > 101 or worsening condition Prescriptions: Cyclobenzaprine HCl [Flexeril 10 mg Tablet] 10 mg PO TIDP PRN #15 tab PRN Reason: Diclofenac Sodium [Voltaren 50 Mg Tablet.] 50 mg PO BID #20 tablet. Referrals: GEORGI GRADY FNP [Primary Care Provider] - Follow up as needed DAVINA BLANCHARD DO [ACTIVE STAFF] - Follow up as needed
[2020-10-25 22:36] VITALS: BP 120/72
== END 2020-10-25 22:35 | disposition home or self-care (01) ==
LOC: ER 21:11
DX: M54.5 Low back pain (principal); R25.2 Cramp and spasm
CPT/HCPCS: 99284; 96372; J3490; J1885